=== PATIENT | female | born 1990 | race Caucasian/White ===

== ENCOUNTER 2023-01-03 06:42 | Emergency (ER) | payer MEDICAID, SELFPAY ==
[2023-01-03 07:01] VITALS: BMI 19.8
[2023-01-03 07:04] VITALS: BP 113/74; PULSE 87; RESP 16; TEMP 36.8; O2SAT 96
--- NOTE | 2023-01-03 07:30 | CTR_ITS ---
PROCEDURE INFORMATION: Exam: CT Neck With Contrast Exam date and time: 01/03/2023 8:29 AM Age: 32 years old Clinical indication: Neck pain; Additional info: Dental-jaw and neck pain TECHNIQUE: Imaging protocol: Computed tomography of the neck with contrast. Radiation optimization: All CT scans at this facility use at least one of these dose optimization techniques: automated exposure control; mA and/or kV adjustment per patient size (includes targeted exams where dose is matched to clinical indication); or iterative reconstruction. Contrast material: OMNI 350; Contrast volume: 80 ml; Contrast route: INTRAVENOUS (IV); REPORTING DATA: Count of CT and Cardiac NM exams in prior 12 months: This patient has received 0 known CTs and 0 known cardiac nuclear medicine studies in the 12 months prior to the current study. COMPARISON: No relevant prior studies available. RADIATION DOSE METRICS: Total DLP (mGy-cm): 169.41 FINDINGS: Dental: Poor dentition with multiple scattered dental caries. Largest dental elías is noted in the posterior lower right molar, measuring up to 7 mm (axial series 4, image 48; sagittal series 8 image 58), best seen on bone window. Pharynx: Unremarkable. No significant tonsillar enlargement. Larynx: Unremarkable. Epiglottis is normal. Prevertebral and retropharyngeal spaces: Unremarkable. Salivary glands: Normal. Glands are normal in size. Thyroid: Normal. No enlarged or calcified nodules. Lymph nodes: Right submandibular lymph nodes are mildly enlarged and enhancing compared to the left, likely reactive. Trachea: Visualized trachea is unremarkable. Lungs: Unremarkable as visualized. Bones/joints: Unremarkable. No acute fracture. Soft tissues: Unremarkable. No significant soft tissue swelling. CT/CT neck w con* [id number] IMPRESSION: Poor dentition with multiple scattered dental caries. Largest dental elías is noted in the posterior lower right molar, measuring up to 7 mm. No focal fluid collections in the surrounding soft tissues to suggest abscess formation.
[2023-01-03 07:34] VITALS: BP 113/74; PULSE 91; O2SAT 94
[2023-01-03] MEDS: ondansetron 2 mg/ML SDV 2 mL 4 MG IVP (08:00)
[2023-01-03] MEDS: sodium chloride 0.9% 500 ML IV (08:00)
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
[2023-01-03] MEDS: fentaNYL 50 mcg/mL INJ 2mL 25 MCG IVP (08:01)
[2023-01-03 08:04] VITALS: BP 102/73; PULSE 98; O2SAT 96
[2023-01-03 08:06] LABS: Basophils % 0.5 %; Eosinophils # 0.3 10^3/uL (0.0-0.8); Eosinophils % 2.9 %; Lymphocytes # 1.7 10^3/uL (0.8-4.8); Lymphocytes % 20.4 %; Mean Corpuscular HGB Conc 33.3 g/dL (30.0-36.0); Mean Corpuscular Hemoglobin 29.5 pg (28.0-34.0); Mean Corpuscular Volume 88.6 fl (81-99); Mean Platelet Volume 10.8 fL (7.4-10.4); Monocytes # 0.7 10^3/uL (0.2-0.9); Monocytes % 8.4 %; Neutrophils # 5.77 10^3/uL (1.8-7.7); Neutrophils % 67.6 %; Nucleated Red Blood Cells % 0 %; Platelet Count 394 10^3/cmm (130-400); Red Cell Distribution Width 12.7 % (12.1-15.1); White Blood Count 8.5 10^3/uL (4.0-10.0)
[2023-01-03 08:27] LABS: Alanine Aminotransferase 9 U/L (0-33); Albumin Level 4.4 g/dL (3.5-5.2); Alkaline Phosphatase 87 U/L (35-105); Anion Gap 13.5 (5-19); Aspartate Amino Transferase 15 U/L (0-32); Blood Urea Nitrogen 9 mg/dL (6-20); Calcium 9.4 mg/dL (8.5-10.5); Carbon Dioxide 26 mmol/L (22-29); Chloride 104 mmol/L (98-107); Globulin 3.3 g/dL (1.3-4.6); Glomerular Filtration Rate 117.4 mL/min (90-130); Glucose 108 mg/dL (65-115); Osmolality Calculated 289 mOsm/kg (285-295); Potassium 3.5 mmol/L (3.5-5.1); Sodium 140 mmol/L (136-145); Total Bilirubin 0.2 mg/dL (0.15-1.2); Total Protein 7.7 g/dL (6.6-8.7)
[2023-01-03] MEDS: iohexol 350 mg/mL 500 mL Btl (per mL) IV (08:33)
[2023-01-03 09:00] VITALS: BP 112/67; PULSE 89; O2SAT 100
[2023-01-03] MEDS: amoxicillin-clav 875-125 mg Tablet 1 TAB PO (09:26)
[2023-01-03] MEDS: ketorolac 60 mg/2 mL INJ 30 MG IVP (09:27)
== END 2023-01-03 09:48 | disposition home or self-care (01) ==
PROVIDERS: Emergency Provider Nurse Practitioner
DX: S02.5XXA Fracture of tooth (traumatic), initial encounter for closed fracture (principal); W50.0XXA Accidental hit or strike by another person, initial encounter; K04.7 Periapical abscess without sinus; A69.1 Other Vincent's infections; K02.9 Dental caries, unspecified; K13.79 Other lesions of oral mucosa
CPT/HCPCS: 70491; 80053; 83605; 85025; 96374; 96375; 99285; J1885; J2405; J3010; J7040; Q9967

== ENCOUNTER 2023-02-08 13:37 | Emergency (ER) | payer SELFPAY | END 2023-02-08 14:15 | disposition left against medical advice (07) | PROVIDERS: Emergency Provider Family Medicine | DX: Z53.21 Procedure and treatment not carried out due to patient leaving prior to being seen by health care provider (principal) | CPT/HCPCS: 99284 ==

== ENCOUNTER 2023-08-03 22:59 | Emergency (ER) | payer MEDICAID, SELFPAY ==
[2023-08-03 23:04] VITALS: BP 120/82; PULSE 85; RESP 16; TEMP 36.9; O2SAT 95; BMI 19.8
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
[2023-08-04 00:07] VITALS: BP 106/74; PULSE 88; RESP 16; O2SAT 98
== END 2023-08-04 00:08 | disposition home or self-care (01) ==
PROVIDERS: Emergency Provider Internal Medicine
DX: F10.90 Alcohol use, unspecified, uncomplicated (principal); F15.90 Other stimulant use, unspecified, uncomplicated
CPT/HCPCS: 99283

== ENCOUNTER 2024-04-03 04:18 | Emergency (ER) | payer MEDICAID, SELFPAY ==
[2024-04-03 04:18] VITALS: BP 128/87; PULSE 101; RESP 17; TEMP 36.9; O2SAT 97; BMI 23.6
--- NOTE | 2024-04-03 04:30 | CTR_ITS ---
PROCEDURE INFORMATION: Exam: CT Head Without Contrast Exam date and time: 04/03/2024 6:18 AM Age: 33 years old Clinical indication: Pain; Headache; Patient HX: C/O severe BRAUN post witnessed seizure. ; Additional info: Veena TECHNIQUE: Imaging protocol: Computed tomography of the head without contrast. Radiation optimization: All CT scans at this facility use at least one of these dose optimization techniques: automated exposure control; mA and/or kV adjustment per patient size (includes targeted exams where dose is matched to clinical indication); or iterative reconstruction. COMPARISON: CT neck w con* [id number] 01/03/2023 8:29 AM RADIATION DOSE METRICS: Total DLP (mGy-cm): 976.4 FINDINGS: Brain: Normal. No hemorrhage. Unremarkable white matter. No mass effect. Cerebral ventricles: No ventriculomegaly. Paranasal sinuses: Visualized sinuses are unremarkable. No fluid levels. Mastoid air cells: Visualized mastoid air cells are well aerated. Bones: Unremarkable. No acute fracture. Soft tissues: Unremarkable. CT/CT head wo con* [id number] IMPRESSION: No acute intracranial abnormality.
--- NOTE | 2024-04-03 04:31 | ECG_ITS ---
[facility] 2024[facility] Pat Name: Pernell Marroquin Department: Room: Gender: Female Finished Yarn Examiner: : 1990 Requested By: Emiliano Matt Order Number: [id number] Neto MD: Hernan Leon M.D. Measurements Intervals [place] Rate: 84 P: 69 HI: 155 QRS: 77 QRSD: 89 T: 51 QT: 363 QTc: 431 Interpretive Statements SINUS RHYTHM No previous ECG available for comparison Electronically Signed On 04-03-2024 19:23:06 GAUGE AND WEIGH MACHINE ADJUSTER by Hernan Leon M.D. [email or web address]
--- NOTE | 2024-04-03 04:50 | W.ED.SEIZURE ---
Documented by User: Emiliano Shaka Rhodes, DO 04/03/24 05:52 HPI - Seizure General: Chief Complaint: Seizure Stated Complaint: AMS Time Seen by Provider: 04/03/24 04:26 History of Present Illness: HPI Narrative: 33-year-old female with no prior history of seizure disorder presenting with a seizure in skilled nursing this morning. She was evidently in bed asleep, and had an episode of nonresponsiveness with violent convulsions. It lasted a few minutes according to skilled nursing staff. The patient does not remember the event. She did not lose continence. She did not bite her tongue. She complains of a headache now. Evidently after the episode, she had a period of confusion. She denies recent drug or alcohol use Related Data Home Medications Medication Instructions Recorded Confirmed acetaminophen 500 mg tablet 2,000 mg PO Q6H PRN Pain 01/03/23 04/03/24 naproxen sodium 220 mg tablet 440 mg PO Q12H PRN Pain 01/03/23 04/03/24 (Aleve) Allergies Allergy/AdvReac Type Severity Reaction Status Date / Time No Known Allergies Allergy Verified 08/03/23 23:09 [facility] Female Reproductive History: Date of last menstrual period: 03/30/24 Physical Exam Const: COMMON NORMALS: no acute distress GENERAL APPEARANCE: cooperative; not ill appearing and not frail appearing HENMT: COMMON NORMALS: normocephalic, atraumatic and Normal external nose present HEAD & SCALP: normocephalic and atraumatic FACE & SINUS: normal facial exam and face symmetric NOSE: Normal external nose present Eye: COMMON NORMALS: Equal, round and reactive pupils present and EOMs intact bilaterally PUPIL: Yes Equal, round and reactive pupils present Neck/C-Spine: GENERAL: Yes trachea midline Chest: CHEST: Yes Symmetrical chest wall rise Resp: COMMON NORMALS: normal respiratory effort, No retractions, No use of accessory muscles and clear to auscultation bilaterally AUSCULTATION: clear to auscultation bilaterally Cardio: COMMON NORMALS: regular rate and regular rhythm RATE: regular rate RHYTHM: regular rhythm GI: COMMON NORMALS: Normal to inspection, nondistended, normoactive bowel sounds present Extremity: COMMON NORMALS: no pedal edema Neuro: BERNARD COMA SCALE: document GCS findings Bernard coma scale eye opening: Spontaneous Fraser coma scale verbal response: Orientated Fraser coma scale motor response: Obey commands Fraser coma scale total score: 15 SENSORY EXAM: Yes extremities (intact) Psych: COMMON NORMALS: speech normal SPEECH: Yes normal speech Skin: COMMON NORMALS: no rashes or lesions noted GENERAL SKIN EXAM: no rashes or lesions noted Course Vital Signs: Vital signs: Vital Signs Temperature 98.5 F 04/03/24 04:18 Pulse Rate 100 04/03/24 08:30 Respiratory Rate 18 04/03/24 06:00 Blood Pressure 125/87 04/03/24 08:30 Pulse Oximetry 95 04/03/24 08:30 Oxygen Delivery Me thod Room Air 04/03/24 04:18 MDM - Seizure MDM Narrative Medical decision making narrative: 33-year-old female. Seems to have recovered from a seizure. She has a headache. Laboratory and CT are pending. IV access has been difficult in this patient. She will be checked out at shift change. Vitals are stable at this point. Lab Data 04/03/24 06:15 04/03/24 06:15 Labs: Radiology Impressions Head CT 04/03/24 04:30 IMPRESSION: No acute intracranial abnormality. Laboratory Results WBC 6.53 10^3/uL (3.29-11.43) 04/03/24 06:15 RBC 4.72 10^6/uL (3.85-5.65) 04/03/24 06:15 Hgb 14.60 g/dL (11.27-16.99) 04/03/24 06:15 Hct 42.3 % (36-47) 04/03/24 06:15 MCV 89.6 fl (85-98) 04/03/24 06:15 MCH 30.9 pg (27-33) 04/03/24 06:15 MCHC 34.5 g/dL (30-55) 04/03/24 06:15 RDW 12.8 % (12.1-15.1) 04/03/24 06:15 Plt Count 400 10^3/cmm (157-399) H 04/03/24 06:15 MPV 10.2 fL (7.4-10.4) 04/03/24 06:15 Neut % (Auto) 64.7 % 04/03/24 06:15 Lymph % (Auto) 22.4 % 04/03/24 06:15 [place] % (Auto) 8.9 % 04/03/24 06:15 Eos % (Auto) 3.2 % 04/03/24 06:15 Baso % (Auto) 0.5 % 04/03/24 06:15 Neut # (Auto) 4.23 10^3/uL (1.8-7.7) 04/03/24 06:15 Lymph # (Auto) 1.5 10^3/uL (0.8-4.8) 04/03/24 06:15 [place] # (Auto) 0.6 10^3/uL (0.2-0.9) 04/03/24 06:15 Eos # (Auto) 0.2 10^3/uL (0.0-0.8) 04/03/24 06:15 Baso # (Auto) 0.0 10^3/uL (0.0-0.1) 04/03/24 06:15 Nucleated RBC % (auto) 0 % 04/03/24 06:15 Nucleated RBCs # 0.0 /100WBC 04/03/24 06:15 Sodium 139 mmol/L (136-145) 04/03/24 06:15 Potassium 3.9 mmol/L (3.5-5.1) 04/03/24 06:15 Chloride 101 mmol/L (98-107) 04/03/24 06:15 Carbon Dioxide 27 mmol/L (22-29) 04/03/24 06:15 Anion Gap 14.9 (5-19) 04/03/24 06:15 BUN 6 mg/dL (6-20) 04/03/24 06:15 Creatinine 0.5 mg/dL (0.5-0.9) 04/03/24 06:15 GFR Calculation 143.9 mL/min (90-130) H 04/03/24 06:15 Glucose 89 mg/dL (65-115) 04/03/24 06:15 Calculated Osmolality 285 mOsm/kg (285-295) 04/03/24 06:15 Calcium 9.0 mg/dL (8.5-10.5) 04/03/24 06:15 Phosphorus 3.1 mg/dL (2.5-4.5) 04/03/24 06:15 Magnesium 2.1 mg/dL (1.7-2.3) 04/03/24 06:15 Total Bilirubin 0.2 mg/dL (0.15-1.2) 04/03/24 06:15 AST 26 U/L (0-32) 04/03/24 06:15 ALT 23 U/L (0-33) 04/03/24 06:15 Alkaline Phosphatase 126 U/L (35-105) H 04/03/24 06:15 Creatine Kinase 87 U/L (26-192) 04/03/24 06:15 Total Protein 7.4 g/dL (6.6-8.7) 04/03/24 06:15 Albumin 4.1 g/dL (3.5-5.2) 04/03/24 06:15 Globulin 3.3 g/dL (1.3-4.6) 04/03/24 06:15 HCG, Qual Negative (Negative) 04/03/24 06:15 Urine Color Yellow (Yellow) 04/03/24 06:15 Urine Appearance Clear (CLEAR) 04/03/24 06:15 Urine pH 7.0 (5-7) 04/03/24 06:15 Ur Specific [place] 1.020 (1.005-1.030) 04/03/24 06:15 Urine Protein Negative (Negative) 04/03/24 06:15 Urine Glucose (UA) Negative (Normal) 04/03/24 06:15 Urine Ketones Negative (Negative) 04/03/24 06:15 Urine Blood Negative (Negative) 04/03/24 06:15 Urine Nitrate Negative (Negative) 04/03/24 06:15 Urine Bilirubin Negative (Negative) 04/03/24 06:15 Urine Urobilinogen 1.0 mg/dL (Negative) 04/03/24 06:15 Ur Leukocyte Esterase Negative (Negative) 04/03/24 06:15 Urine RBC 0-2 /hpf (0-2) 04/03/24 06:15 Urine WBC 0-5 /hpf (0-5) 04/03/24 06:15 Ur Squamous Epith Cells 0-5 /hpf (0-5) 04/03/24 06:15 Amorphous Sediment Not Reportable 04/03/24 06:15 Urine Bacteria None seen /hpf (NONE) 04/03/24 06:15 Hyaline Casts 0-4 /lpf H 04/03/24 06:15 Urine Opiates Screen Negative ng/mL (Negative) 04/03/24 06:15 Ur Barbiturates Screen Negative ng/mL (Negative) 04/03/24 06:15 Ur Phencyclidine Scrn Negative ng/mL (Negative) 04/03/24 06:15 Ur Amphetamines Screen Positive ng/mL (Negative) H 04/03/24 06:15 U Benzodiazepines Scrn Negative ng/mL (Negative) 04/03/24 06:15 Urine Cocaine Screen Negative ng/mL (Negative) 04/03/24 06:15 U Marijuana (THC) Screen Positive ng/mL (Negative) H 04/03/24 06:15 Ethyl Alcohol < 10 mg/dL (0-10) 04/03/24 06:15 All radiology interpretation(s) finalized by discharge Discharge Plan Discharge Patient Disposition: Home Clinical Impression: Generalized seizure, Polysubstance abuse Condition: Stable Prescriptions: No Action acetaminophen [Tylenol Ex Str Rapid Release] 500 mg Tablet 2,000 mg PO Q6H PRN (Reason: Pain) naproxen sodium [Aleve] 220 mg Tablet 440 mg PO Q12H PRN (Reason: Pain) Discharge Orders: Discharge ED (Routine); Ordered 04/03/24 Ordered By: Jossue Coello Discharge Diet: Usual diet Discharge Activity: Resume usual activity Patient Instructions: Opioid Safety, Pain Management Activity Restrictions/Additional Instructions: Thank you for choosing [facility] for your healthcare needs today. It is very important that you follow up as instructed or that you return to the Emergency Department should you have concerns or if your condition changes or worsens in any way. You are seen in the emergency room after a reported seizure. CT of the head and your laboratory tests did not show any significant abnormalities. Urine drug screen did show some positives. These things can be related to having seizures. At this point do not recommend starting seizure medications we will set you up for an outpatient EEG and follow-up with neurology. Recommend avoiding drug and alcohol use as these things can lower seizure threshold. Also recommend avoiding sleep deprivation as this also will lower your's seizure threshold. Sign Out Sign Out Data: Patient Sign Out occurred on 04/03/24 at 06:27. Patient's care was discussed, and care was transferred from Emiliano Rhodes DO to Jossue Coello DO. Coding Level of Care Code ED Outpatient Physical Therapist Assistant for Chg Fwd Documented by User: Jossue Coello DO 04/03/24 10:48 HPI - Seizure General: Chief Complaint: Seizure Stated Complaint: AMS Time Seen by Provider: 04/03/24 04:26 Related Data Home Medications Medication Instructions Recorded Confirmed acetaminophen 500 mg tablet 2,000 mg PO Q6H PRN Pain 01/03/23 04/03/24 naproxen sodium 220 mg tablet 440 mg PO Q12H PRN Pain 01/03/23 04/03/24 (Aleve) Allergies Allergy/AdvReac Type Severity Reaction Status Date / Time No Known Allergies Allergy Verified 08/03/23 23:09 Physical Exam Neuro: BERNARD COMA SCALE: document GCS findings Bernard coma scale total score: 15 Course Vital Signs: Vital signs: Vital Signs Temperature 98.5 F 04/03/24 04:18 Pulse Rate 100 04/03/24 08:30 Respiratory Rate 18 04/03/24 06:00 Blood Pressure 125/87 04/03/24 08:30 Pulse Oximetry 95 04/03/24 08:30 Oxygen Delivery Me thod Room Air 04/03/24 04:18 MDM - Seizure MDM Narrative Medical decision making narrative: 33-year-old female. Seems to have recovered from a seizure. She has a headache. Laboratory and CT are pending. IV access has been difficult in this patient. She will be checked out at shift change. Vitals are stable at this point. Suspect patient did actually have a seizure. She has a history of marijuana methamphetamine use both of which were noted in her urine. Patient confirms she had been using recently. Advised her at this point not recommend starting any antiseizure medications we will set her up for outpatient neurology consult. Lab Data 04/03/24 06:15 04/03/24 06:15 Labs: Radiology Impressions Head CT 04/03/24 04:30 IMPRESSION: No acute intracranial abnormality. Laboratory Results WBC 6.53 10^3/uL (3.29-11.43) 04/03/24 06:15 RBC 4.72 10^6/uL (3.85-5.65) 04/03/24 06:15 Hgb 14.60 g/dL (11.27-16.99) 04/03/24 06:15 Hct 42.3 % (36-47) 04/03/24 06:15 MCV 89.6 fl (85-98) 04/03/24 06:15 MCH 30.9 pg (27-33) 04/03/24 06:15 MCHC 34.5 g/dL (30-55) 04/03/24 06:15 RDW 12.8 % (12.1-15.1) 04/03/24 06:15 Plt Count 400 10^3/cmm (157-399) H 04/03/24 06:15 MPV 10.2 fL (7.4-10.4) 04/03/24 06:15 Neut % (Auto) 64.7 % 04/03/24 06:15 Lymph % (Auto) 22.4 % 04/03/24 06:15 Amador % (Auto) 8.9 % 04/03/24 06:15 Eos % (Auto) 3.2 % 04/03/24 06:15 Baso % (Auto) 0.5 % 04/03/24 06:15 Neut # (Auto) 4.23 10^3/uL (1.8-7.7) 04/03/24 06:15 Lymph # (Auto) 1.5 10^3/uL (0.8-4.8) 04/03/24 06:15 [place] # (Auto) 0.6 10^3/uL (0.2-0.9) 04/03/24 06:15 Eos # (Auto) 0.2 10^3/uL (0.0-0.8) 04/03/24 06:15 Baso # (Auto) 0.0 10^3/uL (0.0-0.1) 04/03/24 06:15 Nucleated RBC % (auto) 0 % 04/03/24 06:15 Nucleated RBCs # 0.0 /100WBC 04/03/24 06:15 Sodium 139 mmol/L (136-145) 04/03/24 06:15 Potassium 3.9 mmol/L (3.5-5.1) 04/03/24 06:15 Chloride 101 mmol/L (98-107) 04/03/24 06:15 Carbon Dioxide 27 mmol/L (22-29) 04/03/24 06:15 Anion Gap 14.9 (5-19) 04/03/24 06:15 BUN 6 mg/dL (6-20) 04/03/24 06:15 Creatinine 0.5 mg/dL (0.5-0.9) 04/03/24 06:15 GFR Calculation 143.9 mL/min (90-130) H 04/03/24 06:15 Glucose 89 mg/dL (65-115) 04/03/24 06:15 Calculated Osmolality 285 mOsm/kg (285-295) 04/03/24 06:15 Calcium 9.0 mg/dL (8.5-10.5) 04/03/24 06:15 Phosphorus 3.1 mg/dL (2.5-4.5) 04/03/24 06:15 Magnesium 2.1 mg/dL (1.7-2.3) 04/03/24 06:15 Total Bilirubin 0.2 mg/dL (0.15-1.2) 04/03/24 06:15 AST 26 U/L (0-32) 04/03/24 06:15 ALT 23 U/L (0-33) 04/03/24 06:15 Alkaline Phosphatase 126 U/L (35-105) H 04/03/24 06:15 Creatine Kinase 87 U/L (26-192) 04/03/24 06:15 Total Protein 7.4 g/dL (6.6-8.7) 04/03/24 06:15 Albumin 4.1 g/dL (3.5-5.2) 04/03/24 06:15 Globulin 3.3 g/dL (1.3-4.6) 04/03/24 06:15 HCG, Qual Negative (Negative) 04/03/24 06:15 Urine Color Yellow (Yellow) 04/03/24 06:15 Urine Appearance Clear (CLEAR) 04/03/24 06:15 Urine pH 7.0 (5-7) 04/03/24 06:15 Ur Specific [place] 1.020 (1.005-1.030) 04/03/24 06:15 Urine Protein Negative (Negative) 04/03/24 06:15 Urine Glucose (UA) Negative (Normal) 04/03/24 06:15 Urine Ketones Negative (Negative) 04/03/24 06:15 Urine Blood Negative (Negative) 04/03/24 06:15 Urine Nitrate Negative (Negative) 04/03/24 06:15 Urine Bilirubin Negative (Negative) 04/03/24 06:15 Urine Urobilinogen 1.0 mg/dL (Negative) 04/03/24 06:15 Ur Leukocyte Esterase Negative (Negative) 04/03/24 06:15 Urine RBC 0-2 /hpf (0-2) 04/03/24 06:15 Urine WBC 0-5 /hpf (0-5) 04/03/24 06:15 Ur Squamous Epith Cells 0-5 /hpf (0-5) 04/03/24 06:15 Amorphous Sediment Not Reportable 04/03/24 06:15 Urine Bacteria None seen /hpf (NONE) 04/03/24 06:15 Hyaline Casts 0-4 /lpf H 04/03/24 06:15 Urine Opiates Screen Negative ng/mL (Negative) 04/03/24 06:15 Ur Barbiturates Screen Negative ng/mL (Negative) 04/03/24 06:15 Ur Phencyclidine Scrn Negative ng/mL (Negative) 04/03/24 06:15 Ur Amphetamines Screen Positive ng/mL (Negative) H 04/03/24 06:15 U Benzodiazepines Scrn Negative ng/mL (Negative) 04/03/24 06:15 Urine Cocaine Screen Negative ng/mL (Negative) 04/03/24 06:15 U Marijuana (THC) Screen Positive ng/mL (Negative) H 04/03/24 06:15 Ethyl Alcohol < 10 mg/dL (0-10) 04/03/24 06:15 Discharge Plan Discharge Patient Disposition: Home Clinical Impression: Generalized seizure, Polysubstance abuse Condition: Stable Prescriptions: No Action acetaminophen [Tylenol Ex Str Rapid Release] 500 mg Tablet 2,000 mg PO Q6H PRN (Reason: Pain) naproxen sodium [Aleve] 220 mg Tablet 440 mg PO Q12H PRN (Reason: Pain) Discharge Orders: Discharge ED (Routine); Ordered 04/03/24 Ordered By: Jossue Coello Discharge Diet: Usual diet Discharge Activity: Resume usual activity Patient Instructions: Opioid Safety, Pain Management Activity Restrictions/Additional Instructions: Thank you for choosing [facility] for your healthcare needs today. It is very important that you follow up as instructed or that you return to the Emergency Department should you have concerns or if your condition changes or worsens in any way. You are seen in the emergency room after a reported seizure. CT of the head and your laboratory tests did not show any significant abnormalities. Urine drug screen did show some positives. These things can be related to having seizures. At this point do not recommend starting seizure medications we will set you up for an outpatient EEG and follow-up with neurology. Recommend avoiding drug and alcohol use as these things can lower seizure threshold. Also recommend avoiding sleep deprivation as this also will lower your's seizure threshold. Sign Out Sign Out Data: Patient Sign Out occurred on 04/03/24 at 06:27. Patient's care was discussed, and care was transferred from Emiliano Rhodes DO to Jossue Coello DO. Coding Level of Care Code ED Outpatient Physical Therapist Assistant for Greg White
[2024-04-03 05:35] VITALS: PULSE 112; RESP 16; O2SAT 98
[2024-04-03 06:00] VITALS: BP 124/83; PULSE 98; RESP 18; O2SAT 99
[2024-04-03] MEDS: ondansetron 2 mg/ML SDV 2 mL 4 MG IVP (06:21)
[2024-04-03] MEDS: ketorolac 30 mg/mL INJ IVP (06:21)
[2024-04-03 06:25] LABS: Basophils % 0.5 %; Eosinophils # 0.2 10^3/uL (0.0-0.8); Eosinophils % 3.2 %; Hematocrit 42.3 % (36-47); Lymphocytes # 1.5 10^3/uL (0.8-4.8); Lymphocytes % 22.4 %; Mean Corpuscular HGB Conc 34.5 g/dL (30-55); Mean Corpuscular Hemoglobin 30.9 pg (27-33); Mean Corpuscular Volume 89.6 fl (85-98); Mean Platelet Volume 10.2 fL (7.4-10.4); Monocytes # 0.6 10^3/uL (0.2-0.9); Monocytes % 8.9 %; Neutrophils # 4.23 10^3/uL (1.8-7.7); Neutrophils % 64.7 %; Nucleated Red Blood Cells % 0 %; Platelet Count 400 10^3/cmm (157-399); Red Blood Count 4.72 10^6/uL (3.85-5.65); Red Cell Distribution Width 12.8 % (12.1-15.1); White Blood Count 6.53 10^3/uL (3.29-11.43)
[2024-04-03 06:28] LABS: Bilirubin Urine Negative (Negative); Blood Urine Negative (Negative); Glucose Urine UA Negative (Normal); Ketones Urine Negative (Negative); Leukocyte Esterase Urine Negative (Negative); Nitrate Urine Negative (Negative); Protein Urine Negative (Negative); Urine Appearance Clear (CLEAR); Urine Color Yellow (Yellow)
[2024-04-03 06:33] LABS: Add Urine Microscopic? YES; Bacteria Urine None Seen /hpf; HCG, Serum Qual Negative (Negative); Hyaline Casts Urine 0-4 /lpf; RBC Urine 0-2 /hpf (0-2); Squamous Epithelial Cell Urine 0-5 /hpf (0-5); WBC Urine 0-5 /hpf (0-5)
[2024-04-03 06:34] LABS: Amphetamines Screen Urine Positive (Negative); Barbiturates Screen Urine Negative (Negative); Benzodiazepines Screen Urine Negative (Negative); Cocaine Screen Urine Negative (Negative); Opiate Screen Urine Negative (Negative); PCP Screen Urine Negative (Negative); THC Screen Urine Positive (Negative)
[2024-04-03 06:38] LABS: Alanine Aminotransferase 23 U/L (0-33); Albumin Level 4.1 g/dL (3.5-5.2); Alcohol Level < 10 mg/dL (0-10); Alkaline Phosphatase 126 U/L (35-105); Anion Gap 14.9 (5-19); Aspartate Amino Transferase 26 U/L (0-32); Blood Urea Nitrogen 6 mg/dL (6-20); Carbon Dioxide 27 mmol/L (22-29); Chloride 101 mmol/L (98-107); Creatine Phosphokinase 87 U/L (26-192); Creatinine Clr Calc Pharmacy 132.1796; Globulin 3.3 g/dL (1.3-4.6); Glomerular Filtration Rate 143.9 mL/min (90-130); Glucose 89 mg/dL (65-115); Magnesium 2.1 mg/dL (1.7-2.3); Osmolality Calculated 285 mOsm/kg (285-295); Phosphorus 3.1 mg/dL (2.5-4.5); Potassium 3.9 mmol/L (3.5-5.1); Sodium 139 mmol/L (136-145); Total Bilirubin 0.2 mg/dL (0.15-1.2); Total Protein 7.4 g/dL (6.6-8.7)
--- NOTE | 2024-04-03 07:23 | PC.PHAR ---
pt states she no longer has a control implant. 04/03/24
[2024-04-03 07:30] VITALS: O2SAT 96
[2024-04-03 08:30] VITALS: BP 125/87; PULSE 100; O2SAT 95
--- NOTE | 2024-04-06 05:12 | DCPLANNER ---
Message sent to Neurology for follow and EEG
== END 2024-04-03 08:31 | disposition home or self-care (01) ==
PROVIDERS: Emergency Medicine; Emergency Provider Family Medicine
DX: G40.89 Other seizures (principal); F19.10 Other psychoactive substance abuse, uncomplicated
CPT/HCPCS: 36415; 70450; 80053; 80306; 80307; 81001; 82550; 83735; 84100; 84703; 85025; 93005; 96374; 96375; 99285; J1885; J2405

== ENCOUNTER 2024-10-26 22:34 | Emergency (ER) | payer MEDICAID, SELFPAY ==
--- NOTE | 2024-10-26 22:35 | XRR_ITS ---
PROCEDURE INFORMATION: Exam: XR Right Foot Exam date and time: 10/26/2024 10:45 PM Age: 34 years old Clinical indication: Injury or trauma; Fall; Swelling (edema); Foot; Right; Additional info: Fall today, lateral ankle pain TECHNIQUE: Imaging protocol: Radiologic exam of the right foot. Views: 3 or more views. COMPARISON: CR (LOW EXM, ) 10/26/2024 10:43 PM FINDINGS: Bones/joints: No acute displaced fracture or dislocation. Soft tissues: Soft tissue edema. XR/XR foot RT min 3V* [id number] IMPRESSION: No acute displaced fracture or dislocation.
--- NOTE | 2024-10-26 22:35 | W.ED.LOWEXIN ---
HPI - Extremity Injury (Lower) General: Chief Complaint: Extremity Injury, Lower Stated Complaint: Fell Rt Foot Injury Time Seen by Provider: 10/26/24 22:35 Source: patient Mode of arrival: ambulatory Limitations: no limitations History of Present Illness: Patient is a 34-year-old female presents to ED today with complaint of right foot and ankle pain that she sustained just prior to arrival. Patient states she was going up a bunk bed ladder when she slipped on a step and inverted her ankle. She was unable to bear weight after injury. She also has some tingling down her foot into her toes. Has a history of 2 separate fractures in the same extremity. Denies any surgeries or reduction to foot/ankle in the past. Denies history of osteoporosis/osteopenia. Has no other injuries after fall. MD complaint: ankle injury and foot injury Onset (ago): hour(s) Injury: Right: ankle and foot Type of Injury: inversion Place: home Severity: moderate Relieving factors: immobilization Exacerbating factors: weight bearing, movement and palpation Context: fall Associated symptoms: Reports inability to bear weight Other symptoms: none Related Data Home Medications ?Medication ?Instructions ?Recorded ?Confirmed acetaminophen 500 mg tablet 2,000 mg PO Q6H PRN Pain 01/03/23 04/03/24 naproxen sodium 220 mg tablet 440 mg PO Q12H PRN Pain 01/03/23 04/03/24 (Aleve) Allergies Allergy/AdvReac Type Severity Reaction Status Date / Time No Known Allergies Allergy Verified 10/26/24 22:41 Review of Systems Musc: Reports: extremity pain (R foot) and joint pain (R ankle); Denies: extremity swelling or joint swelling Neuro: Reports: difficulty walking (secondary to pain); Denies: numbness in extremities or sensory changes Physical Exam Const: COMMON NORMALS: no acute distress, average body habitus, no limitations, healthy appearing, alert and well nourished GENERAL APPEARANCE: cooperative Extremity: COMMON NORMALS: capillary refill normal GENERAL: Yes normal exam except as noted RIGHT LOWER EXTREMITY: Yes foot & digits (pain w ROM) Right ankle: Yes inspection (normal gross inspection), Yes palpation (pain to palpation lateral malleolus) and Yes neurovascular exam (normal) and Yes foot & digits Right foot and digits: Yes inspection (normal gross inspection), Yes palpation (TTP proximal lateral foot) and Yes neurovascular exam (normal) Neuro: COMMON NORMALS: moves all extremities, no focal motor deficits and no sensory deficits noted SENSORIUM/ORIENTATION: Yes alert Course Vital Signs: Vital signs: Vital Signs Temperature 97.8 F 10/26/24 22:38 Pulse Rate 81 10/26/24 22:53 Respiratory Rate 14 10/26/24 22:38 Blood Pressure 118/74 10/26/24 22:53 Pulse Oximetry 100 10/26/24 22:53 Oxygen Delivery Me thod Room Air 10/26/24 22:53 MDM - Extremity Injury (Lower) Medical Decision Making X-ray showed no obvious evidence of a fracture-question avulsion fx near medial cuneiform although she is not tender here clinically. She can be discharged with crutches and an NIKKY wrap and RICE therapy. Follow up with PCP if symptoms are worsening or not improving. Medical Records I reviewed the patient's medical records. Lab Data X-rays are unremarkable. XR interpretation done by ED provider, pending radiology final review Discharge Plan Discharge Patient Disposition: Home Clinical Impression: Mild sprain of right ankle Qualifiers: Encounter type: initial encounter Qualified Code(s): S93.401A - Sprain of unspecified ligament of right ankle, initial encounter Condition: Stable Prescriptions: No Action acetaminophen [Tylenol Ex Str Rapid Release] 500 mg Tablet 2,000 mg PO Q6H PRN (Reason: Pain) naproxen sodium [Aleve] 220 mg Tablet 440 mg PO Q12H PRN (Reason: Pain) Discharge Orders: Discharge ED (Routine); Ordered 10/26/24 Ordered By: Shannon Griffiths Patient Instructions: Ankle Sprain (DC), RICE Therapy Activity Restrictions/Additional Instructions: As we discussed, can weight bear with the crutches as tolerated. Use elevation and ice, resting your ankle. Can use NSAIDs for pain control. Follow up with your PCP if symptoms persist. Print Language: Venezuelan Coding Level of Care Code ED Training Technician for Greg White
[2024-10-26 22:38] VITALS: BP 108/72; PULSE 72; RESP 14; TEMP 36.6; O2SAT 97; BMI 26.4
--- NOTE | 2024-10-26 22:42 | XRR_ITS ---
PROCEDURE INFORMATION: Exam: XR Right Ankle Exam date and time: 10/26/2024 10:43 PM Age: 34 years old Clinical indication: Injury or trauma; Fall; Swelling (edema); Ankle; Right; Additional info: Fall/injury TECHNIQUE: Imaging protocol: Radiologic exam of the right ankle. Views: 3 or more views. COMPARISON: No relevant prior studies available. FINDINGS: Bones/joints: No acute displaced fracture or dislocation. Soft tissues: Soft tissue edema. No unexpected radiopaque foreign bodies. XR/XR ankle RT min 3V* [id number] IMPRESSION: No acute displaced fracture or dislocation.
[2024-10-26 22:53] VITALS: BP 118/74; PULSE 81; O2SAT 100
== END 2024-10-26 23:32 | disposition home or self-care (01) ==
PROVIDERS: Emergency Provider Physician Assistant
DX: S93.401A Sprain of unspecified ligament of right ankle, initial encounter (principal); W11.XXXA Fall on and from ladder, initial encounter
CPT/HCPCS: 73610; 73630; 99283; E0114